=== PATIENT | female | born 1985 | race Caucasian/White ===

== ENCOUNTER 2017-04-27 06:46 | Emergency (ER) | payer OTHER ==
[~2017-04-27] VITALS: Ht 152.4 cm; Wt 93.6 kg
[~2017-04-27 06:46] MED LIST: ACET-749 PO; MTR600X PO; PEDICHW34 PO
[2017-04-27 06:50] VITALS: TEMP 36.5; Ht 152.4 cm; Wt 93.6 kg
[2017-04-27] MEDS ORDERED: NORE1TAB89 PO (06:56)
[2017-04-27] MEDS ORDERED: ONDANSETRON 4MG OD TAB SL ONE (07:00)
[2017-04-27 07:34] LABS: HEMATOCRIT 39.7 % (37-47); MEAN CELL VOLUME 82.2 fL (80-100); MEAN CORPUSCULAR HEMOGLOBIN 27.5 pg (25-34); MEAN CORPUSCULAR HGB CONC 33.5 g/dl (32-36); MEAN PLATELET VOLUME 10.3 fL (7.4-10.4); PLATELET COUNT 459 K/uL (130-400); RED BLOOD COUNT 4.83 M/uL (4.2-5.4); WHITE BLOOD COUNT 12.22 K/uL (4.8-10.8)
[2017-04-27 07:38] LABS: URINE APPEARANCE CLEAR (CLEAR); URINE BILIRUBIN NEG (NEG); URINE COLOR YELLOW; URINE EPITHELIAL CELL AUTO >30 /lpf (0-5); URINE NITRITE NEG (NEG); URINE PH >= 9.0 (4.5-7.5); URINE SPECIFIC GRAVITY 1.024 (1.000-1.030); UROBILINOGEN NEG (NEG); ZZUR CULT IF INDIC CLEAN CATCH NO
[2017-04-27 07:42] LABS: MANUAL MICROSCOPIC REQUIRED? NO; REVIEW REQ? NO
[2017-04-27 07:45] LABS: SULFASALICYLIC ACID NEG (NEG)
[2017-04-27 07:55] LABS: CALCIUM 8.9 mg/dl (8.5-10.1); CREATININE 0.84 mg/dl (0.60-1.20); POTASSIUM 4.2 mmol/L (3.5-5.1)
--- NOTE | 2017-04-27 08:24 | EMERGENCY ROOM VISIT NOTE ---
History Report prepared by Flower: Shannon Lucero Under the Supervision of: Dr. Allan Case M.D. First contact with patient: 06:55 Chief Complaint: ABDOMINAL PAIN Stated Complaint: LOWER ABD PAIN, DIARRHEA FOR 3 DAYS Nursing Triage Summary: Pt c/o diarrhea and lower abd pain x3 days this morning emesis x1 History of Present Illness The patient is a 32 year old female who presents to the Emergency Room with complaints of persistent abdominal pain that started three days ago. She states that she has nausea and several episodes of diarrhea over the past 3 days. The patient also notes that she started having incidents of vomiting this morning. She has not been able to drink any fluids without having an episode of diarrhea. The patient denies having any fevers or leg pain. The patient states that she has not had any changes in her diet and has not been out of the country recently. She also notes that she has not taken any antibiotic recently. She denies any sick contact. Source of History: patient Onset: 3 days ago Position: abdomen Quality: other (persistent) Associated Symptoms: + nausea, + vomiting, + diarrhea, No fevers Note: Pt denies leg pain. Review of Systems All systems have been listed, reviewed, and are negative other than those previously mentioned. Please see Additional Medical History Sheet. Past Medical & Surgical Medical Problems: (1) Pharyngitis Family History No pertinent family history stated Social History Smoking Status: Current Every Day Smoker Drug Use: none Marital Status: Occupation Status: employed Current/Historical Medications Scheduled Norethindrone & Eth Estradiol (Pirmella ), 1 TAB PO DAILY Ondasetron Odt (Zofran Odt), 4 MG SL Q6H Allergies Coded Allergies: No Known Allergies (Verified , 11/14/14) Physical Exam Vital Signs Date Time Temp Pulse Resp B/P (MAP) Pulse Ox O2 Delivery O2 Flow Rate FiO2 04/27/17 10:30 79 16 128/95 99 04/27/17 08:28 81 16 97/72 96 Room Air 04/27/17 06:50 36.5 61 20 123/81 97 Room Air Physical Exam GENERAL: Patient awake, alert, oriented x 3. Patient follows commands. Patient does not appear toxic. Patient is adequately hydrated. Patient is in minimal distress. SKIN: No erythema, pallor, cyanosis or rash HEENT: Normal head, pupils equal, reactive to light and accommodation. Oral cavity and posterior pharynx appear normal. Mucus membrane is moist. Neck: Without adenopathy, no neck vein distention. LUNGS: Clear to auscultation. No wheezes, no rales, no rhonchi. HEART: No murmurs. No gallops. No rubs ABDOMEN: Soft nontender. Obese EXTREMITIES: No signs of trauma or infection. NEUROLOGIC: Cranial nerves II-XII within normal limits. No gross motor sensory function deficits. Medical Decision & Procedures Laboratory Results 04/27/17 07:10 04/27/17 07:10 Test 04/27/17 07:10 Red Blood Count 4.83 M/uL (4.2-5.4) Mean Corpuscular Volume 82.2 fL (80-100) Mean Corpuscular Hemoglobin 27.5 pg (25-34) Mean Corpuscular Hemoglobin Concent 33.5 g/dl (32-36) RDW Standard Deviation 42.0 fL (36.4-46.3) RDW Coefficient of Variation 13.9 % (11.5-14.5) Mean Platelet Volume 10.3 fL (7.4-10.4) Urine Color YELLOW Urine Appearance CLEAR (CLEAR) Urine pH >= 9.0 (4.5-7.5) Urine Specific [place]oshone 1.024 (1.000-1.030) Urine Protein NEG (NEG) Urine Glucose (UA) NEG (NEG) Urine Ketones NEG (NEG) Urine Occult Blood NEG (NEG) Urine Nitrite NEG (NEG) Urine Bilirubin NEG (NEG) Urine Urobilinogen NEG (NEG) Urine Leukocyte Esterase TRACE (NEG) Urine WBC (Auto) 1-5 /hpf (0-5) Urine RBC (Auto) 5-10 /hpf (0-4) Urine Hyaline Casts (Auto) 1-5 /lpf (0-5) Urine Epithelial Cells (Auto) >30 /lpf (0-5) Urine Bacteria (Auto) NEG (NEG) Urine Test NEG (NEG) Anion Gap 6.0 mmol/L (3-11) Est Creatinine Clear Calc Drug Dose 100.1 ml/min Estimated GFR () 108.1 Estimated GFR (Non- 93.3 BUN/Creatinine Ratio 18.0 (10-20) Calcium Level 8.9 mg/dl (8.5-10.1) Chemistry Specimen Hemolysis Date/Time Source Procedure Growth Status 04/27/17 00:00 Stool C.difficile Toxin B Gene (PCR) - Final No C. difficile toxin B gene detected Complete Laboratory results as stated above per my review. Medications Administered Medications (Trade) Dose Ordered Sig/Annette Route Start Time Stop Time Status Last Admin Dose Admin Ondansetron HCl (Zofran Odt) 4 mg ONE ONCE SL 04/27/17 07:00 04/27/17 07:01 DC 04/27/17 07:15 4 MG ED Course 0657: Past medical records reviewed. The patient was evaluated in room A11. A complete history and physical examination was performed. 0700: Zofran Odt 4mg SL. 1008: I reevaluated and updated the patient and she is feeling better. 1025: Upon reevaluation, the patient appeared to have improvement of her symptoms. I discussed today's findings with the patient. She verbalized agreement of the treatment plan. The patient was discharged home. Medical Decision Differential diagnosis includes but is not limited to acute gastroenteritis, dehydration, infection, metabolic disorder, viral vs. bacterial Multiple labs and urinalysis were obtained. C. difficile is negative. Stool cultures pending. White count was minimally elevated. The patient felt significantly better after fluid administration. The patient was felt safe to return home. She will be given a prescription for Zofran. She was encouraged to drink extra fluids. Most likely this is of viral etiology. Medication Reconciliation: I attest that I have personally reviewed the patient' s current medication list. Blood pressure Screening: Patient was found to have normal blood pressure on screening and does not require follow up. Impression Primary Impression: Acute gastroenteritis Scribe Attestation The scribe's documentation has been prepared under my direction and personally reviewed by me in its entirety. I confirm that the note above accurately reflects all work, treatment, procedures, and medical decision making performed by me. Departure Information Dispostion Home / Self-Care Prescriptions Ondasetron Odt (ZOFRAN ODT) 4 Mg Tab 4 MG SL Q6H for Nausea, #10 TAB Prov: Allan Case M.D. 04/27/17 Referrals Quincy Mejia III, M.D. (PCP) Forms HOME CARE DOCUMENTATION FORM, IMPORTANT VISIT INFORMATION Patient Instructions ED Diet Vomiting Diarrhea, My [facility] Additional Instructions 1 Zofran every 4 hours as needed for nausea. Drink at least 4 quarts of liquid over the next 24 hours. Return here if you are unable to hold down liquids.
[2017-04-27] MEDS ORDERED: ONDA4TAB10 SL (10:16)
[2017-04-27 10:30] VITALS: BP 128/95; PULSE 79; O2SAT 99
== END 2017-04-27 10:25 | disposition home or self-care (01) ==
LOC: C.EDB 06:48 → C.EDA 10:25
DX: K52.9 Noninfective gastroenteritis and colitis, unspecified (principal); R10.9 Unspecified abdominal pain; F17.210 Nicotine dependence, cigarettes, uncomplicated

== ENCOUNTER 2023-12-08 15:47 | Inpatient (IN) ==
[2023-12-08 16:33] LABS: Basophils # (auto) 0.03 K/uL (0.00-0.20); Basophils % (auto) 0.2 %; Eosinophils # (auto) 0.06 K/uL (0.00-0.50); Eosinophils % (auto) 0.4 %; Hematocrit (blood only) 37.7 % (37.0-47.0); Hemoglobin 12.5 g/dl (12.0-16.0); Immature Granulocytes # (auto) 0.04 K/uL (0.01-0.20); Immature Granulocytes % (auto) 0.3 %; Lymphocytes % (auto) 16.6 %; Mean Corpuscular Hemoglobin 26.4 pg (25.0-34.0); Mean Corpuscular Hgb Conc 33.2 g/dL (32.0-36.0); Mean Corpuscular Volume 79.5 fL (80.0-100.0); Mean Platelet Volume 9.9 fL (9.4-12.4); Monocytes # (auto) 0.77 K/uL (0.11-0.59); Monocytes % (auto) 5.3 %; Neutrophils # (auto) 11.15 K/uL (1.40-6.50); Neutrophils % (auto) 77.2 %; Platelet Count 446 K/uL (130-400); RDW Coefficient of Variation 13.8 % (11.5-14.5); RDW Standard Deviation 39.8 fL (36.4-46.3); Red Blood Count 4.74 M/uL (4.20-5.40); White Blood Count 14.45 K/ul (4.8-10.8)
[2023-12-08 16:48] LABS: Pregnancy Test, Serum Negative (Negative)
[2023-12-08 16:49] LABS: Albumin Level 3.9 gm/dl (3.4-5.0); Bilirubin,Total 0.6 mg/dl (0.2-1.0); Calcium 8.9 mg/dl (8.6-10.3); Potassium 3.9 mmol/L (3.5-5.1)
[2023-12-08 16:55] LABS: BUN Creatinine Ratio 16.3 (10-20); Creatinine Clr Calc Pharmacy 106.8 ml/min; Est GFR (African American) 109.9 ml/min; Est GFR (Non-African American) 94.9 ml/min; Globulin 3.8 gm/dl (2.5-4.0); Total Protein 7.7 gm/dl (6.0-8.3)
[2023-12-08 17:47] LABS: Appearance Urine Turbid (Clear); Bacteria Urine Automated Negative (Negative); Blood Urine Trace (Negative); Cast Urine Automated 0 /lpf (0-5); Color Urine Orange; Epithelial Cell Urine Auto >30 /lpf (0-5); Glucose Urine UA Negative (Negative); Ketones Urine Trace (Negative); Leukocyte Esterase Urine Trace (Negative); Nitrite Urine Negative (Negative); Protein Urine Trace (Negative); RBC Urine Automated 0-4 /hpf (0-4); Specific Gravity Urine 1.031 (1.000-1.030); Urobilinogen Urine Negative (Negative)
[2023-12-08 17:48] LABS: Bilirubin Urine 1+ (Negative)
--- NOTE | 2023-12-08 18:12 | Emergency Department Note ---
History of Present Illness General Chief complaint: Abdominal Pain Stated complaint: DIVERTICULITIS FLAIR, BACK/ABDOMINAL PAIN Time Seen by Provider: 12/08/23 17:50 History of Present Illness Maximum Pain Intensity: 9 This is a 38-year-old female that presents to the emergency department via private vehicle with complaints "diverticulitis flare, back and abdominal pain". The patient notes that over the past few weeks now she has been experiencing diverticulitis. She notes initially she was on Cipro/Flagyl and completed that course. She then returned here about 4 days ago noting return of symptoms and was started on Augmentin. She notes that despite the oral antibiotics as prescribed she now notes worsening symptoms. She notes today vomiting and inability to tolerate the oral antibiotics. She also notes worsening abdominal pain and now low back pain which is new. Current pain 05/28. Home Medications Medication Instructions Recorded Confirmed Type omeprazole 20 mg capsule,delayed 20 mg PO QAM 05/02/21 12/08/23 History release amoxicillin 875 mg-potassium 1 tab PO BID #20 tabs 12/04/23 12/08/23 Rx clavulanate 125 mg tablet Allergies Allergy/AdvReac Type Severity Reaction Status Date / Time No Known Allergies Allergy Verified 12/08/23 18:50 Past Med/Surg History Medical History Breast abscess pt is s/p PO Abx; plan for surgical I&D Breast hypertrophy Morbid obesity with BMI of 40.0-44.9, adult GERD (gastroesophageal reflux disease) History of diverticulitis Iron deficiency anemia hx of iron infusions; H/H WNL 01/16/23 labs History of COVID-19 x2: 04/2022 and 05/2021: fever/fatigue/loss of taste and smell; all sx resolved Depression Surgical History History of breast surgery Breast abscess Family History Grandmother (Paternal) Diabetes Grandfather (Maternal) Hypertension Other No family history of adverse response to anesthesia Denies family history of Ovarian cancer Breast cancer Colorectal cancer Uterine cancer Social History Smoking Status: Former smoker Tobacco Type: Cigarettes Cigarettes Per Day: 5-6; Smoking End Date: quit 10/08/2018; Second Hand Exposure: No; Do You Dip or Chew Tobacco: No; Tobacco Cessation Education Requested by Patient: No Hx Alcohol Use: No Hx Substance Use: No Preferred Language: Dominican Communication Ability: Effective 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 Other Information That Helps Us Care for You: No Feels Safe at Home: Yes Safety Concerns: Feels Safe At This Time Assistive Devices: Glasses and Hospital Bed Review of Systems A total of 10 systems reviewed and were otherwise negative Physical Exam Vital Signs Vital Signs - 24 hr 12/08/23 18:11 12/08/23 19:00 Pulse Rate [Right Finger] 78 Pulse Rhythm [Right Finger] Regular Respiratory Rate 20 Respiratory Effort / Characteristics Non-Labored Respiratory Depth Normal Blood Pressure [Right Arm] 111/57 L Blood Pressure Mean [Right Arm] 75 Pulse Oximetry 96 96 Oxygen Delivery Method Room Air Room Air VITAL SIGNS - Vital signs and nursing notes were reviewed. Stable and afebrile. GENERAL -38-year-old female appearing her stated age who is in no acute distress. Communicates well with provider and answers questions appropriately. SKIN - Without rashes. No meningeal or petechial rash. HEAD - NC/AT. EYES - Sclera anicteric. MOUTH/OROPHARYNX - Without perioral cyanosis. LUNGS - Chest wall symmetric without accessory muscle use, intercostals retractions, or central cyanosis. Normal vesicular breath sounds CTA B/L. No wheezes, rales, or rhonchi appreciated. CARDIAC - RRR with S1/S2. No murmur, rubs, or gallops appreciated. ABDOMEN - Abdominal contour normal without pulsations or visible masses. BS normoactive all four quadrants. There is lower abdominal tenderness to palpation. No guarding or rigidity. No palpable masses, hepatosplenomegaly, or ascites noted. EXTREMITIES - No clubbing or peripheral cyanosis. +5/5 strength noted in UE/LE bilaterally. NEUROLOGIC - Cranial nerves II through XII grossly intact. PSYCH -alert, oriented and pleasant on exam. Course Administered Medications Acetaminophen (Acetaminophen 500 Mg Tab) 1,000 mg PO Q8H [facility] Stop: 01/07/24 21:00 Last Admin: 12/09/23 12:16 Dose: 1,000 mg Documented By: Admin: 12/09/23 04:42 Dose: 1,000 mg Documented By: Admin: 12/08/23 21:36 Dose: 1,000 mg Documented By: MELANIA Sodium Chloride (Nss) 1,000 mls @ 125 mls/hr IV .Q8H DAYO Stop: 12/09/23 21:00 Last Admin: 12/09/23 12:19 Dose: 125 mls/hr Documented By: Infusion: 12/09/23 12:19 Dose: Infused Documented By: Admin: 12/09/23 04:41 Dose: 125 mls/hr Documented By: Infusion: 12/09/23 04:41 Dose: Infused Documented By: Admin: 12/08/23 21:35 Dose: 125 mls/hr Documented By: MELANIA Piperacillin Sod/Tazobactam (Sod 4.5 gm/ Dextrose) 100 mls @ 25 mls/hr IV Q8H [facility]; Protocol Stop: 12/19/23 00:59 Last Admin: 12/09/23 16:47 Dose: 25 mls/hr Documented By: Infusion: 12/09/23 12:15 Dose: Infused Documented By: Admin: 12/09/23 08:13 Dose: 25 mls/hr Documented By: Infusion: 12/09/23 04:41 Dose: Infused Documented By: Admin: 12/09/23 00:40 Dose: 25 mls/hr Documented By: MELANIA Ondansetron HCl (Ondansetron Inj 2 Mg/Ml 2 Ml Vial) 4 mg IV Q6H PRN PRN Reason: Nausea Stop: 01/07/24 21:00 Last Admin: 12/09/23 12:16 Dose: 4 mg Documented By: KENYON Pantoprazole Sodium (Pantoprazole 40 Mg Tab) 40 mg PO QAM [facility]; Protocol Stop: 01/08/24 08:59 Last Admin: 12/09/23 08:12 Dose: 40 mg Documented By: TOPHER Discontinued Medications Hydromorphone HCl (Hydromorphone Inj 0.5 Mg/0.5 Ml Syr) 0.25 mg IV NOW STA Stop: 12/08/23 18:11 Last Admin: 12/08/23 18:20 Dose: 0.25 mg Documented By: VINICIUS Piperacillin Sod/Tazobactam Sod (Zosyn) 4.5 gm in 100 mls @ 200 mls/hr IV NOW ONE Stop: 12/08/23 18:39 Last Infusion: 12/08/23 19:15 Dose: Infused Documented By: Admin: 12/08/23 18:21 Dose: 200 mls/hr Documented By: VINICIUS Sodium Chloride (Nss) 1,000 mls @ 999 mls/hr IV .Q1H1M DAYO Stop: 12/08/23 20:15 Last Infusion: 12/08/23 21:30 Dose: Infused Documented By: Admin: 12/08/23 20:28 Dose: 999 mls/hr Documented By: EMANUEL Ioversol (Optiray 320 100ml) 93 ml IV ONCE ONE Stop: 12/08/23 18:30 Last Admin: 12/08/23 18:30 Dose: 93 ml Documented By: DAVID Ondansetron HCl (Ondansetron Inj 2 Mg/Ml 2 Ml Vial) 4 mg IV NOW STA Stop: 12/08/23 18:11 Last Admin: 12/08/23 18:20 Dose: 4 mg Documented By: VINICIUS Potassium Chloride (Potassium Chloride Crtab 20 Meq Tabcr) 40 meq PO ONE ONE Stop: 12/09/23 07:42 Last Admin: 12/09/23 08:12 Dose: 40 meq Documented By: TOPHER Medical Decision Making Laboratory Data 12/09/23 05:30 12/09/23 05:30 Lab Results 12/08/23 Range/Units 15:56 WBC 14.45 H (4.8-10.8) K/ul RBC 4.74 (4.20-5.40) M/uL Hgb 12.5 (12.0-16.0) g/dl Hct 37.7 (37.0-47.0) % MCV 79.5 L (80.0-100.0) fL MCH 26.4 (25.0-34.0) pg MCHC 33.2 (32.0-36.0) g/dL RDW Std Deviation 39.8 (36.4-46.3) fL RDW Coeff of Leah 13.8 (11.5-14.5) % Plt Count 446 H (130-400) K/uL MPV 9.9 (9.4-12.4) fL Immature Gran % (Auto) 0.3 % Neut % (Auto) 77.2 % Lymph % (Auto) 16.6 % Rice % (Auto) 5.3 % Eos % (Auto) 0.4 % Baso % (Auto) 0.2 % Neut # (Auto) 11.15 H (1.40-6.50) K/uL Lymph # (Auto) 2.40 (1.20-3.40) K/uL Rice # (Auto) 0.77 H (0.11-0.59) K/uL Eos # (Auto) 0.06 (0.00-0.50) K/uL Baso # (Auto) 0.03 (0.00-0.20) K/uL Immature Gran # (Auto) 0.04 (0.01-0.20) K/uL Sodium 137 (136-145) mmol/L Potassium 3.9 (3.5-5.1) mmol/L Chloride 104 (98-107) mmol/L Carbon Dioxide 25 (21-32) mmol/L Anion Gap 8 (3-11) BUN 13 (6-23) mg/dl Creatinine 0.80 (0.6-1.2) mg/dl Est Cr Clr Drug Dosing 106.8 ml/min Est GFR ( Amer) 109.9 ml/min Est GFR (Non-Af Amer) 94.9 ml/min BUN/Creatinine Ratio 16.3 (10-20) Glucose 90 (70-99(Fasting)) mg/dl Calcium 8.9 (8.6-10.3) mg/dl Total Bilirubin 0.6 (0.2-1.0) mg/dl AST 13 (13-39) U/L ALT 11 (7-52) U/L Alkaline Phosphatase 87 (34-104) U/L Total Protein 7.7 (6.0-8.3) gm/dl Albumin 3.9 (3.4-5.0) gm/dl Globulin 3.8 (2.5-4.0) gm/dl Albumin/Globulin Ratio 1.0 (0.9-2) Lipase 7 L (11-82) U/L HCG, Qual Negative (Negative) Imaging Data Radiologist's Impression: Abdomen/Pelvis CT 12/08/23 18:10 CT SCAN OF THE ABDOMEN AND PELVIS WITH IV CONTRAST CLINICAL HISTORY: Generalized abdominal pain. Vomiting. Diverticulitis. COMPARISON STUDY: Abdominal CT dated 12/04/2023. TECHNIQUE: Following the IV administration of 118 cc of Optiray 320, CT scan of the abdomen and pelvis is performed from the lung bases to the proximal femora. Images are reviewed in the axial, sagittal, and coronal planes. IV contrast was administered without complication. A dose lowering technique was utilized adhering to the principles of ALARA. CT DOSE: 1479.25 mGy.cm FINDINGS: Lung bases: The heart is normal in size and without pericardial effusion. The lung bases are clear. There is a small hiatal hernia. Liver: The contrast-enhanced liver is normal in size, contour, and attenuation. There is no intrahepatic biliary ductal dilatation. The hepatic veins and portal veins are patent. Gallbladder: Unremarkable. Spleen: Normal in size and attenuation. Pancreas: Unremarkable. Adrenal glands: Unremarkable. Kidneys: The contrast enhanced kidneys are normal in size and without hydronephrosis. The kidneys enhance symmetrically. Abdominal vasculature: The abdominal aorta is normal in course and caliber. Bowel: There is mild colonic diverticulosis. There is significant wall thickening of the proximal sigmoid colon with surrounding inflammation and trace fluid consistent with acute diverticulitis. There is a 2.2 x 1.9 x 2.7 cm intramural abscess seen on axial image #278. No bowel obstruction is seen. The appendix is well-visualized and normal. Peritoneum: There is no intraperitoneal free air or abdominal ascites. There is a large fat-containing umbilical hernia. Lymphadenopathy: Prominent retroperitoneal lymph nodes are likely reactive. Pelvic viscera: The bladder, uterus, and adnexa are normal as visualized. Skeletal structures: No lytic or blastic lesions are seen. Sclerotic change is noted in the sacroiliac joints. IMPRESSION: 1. Again seen are findings of acute sigmoid diverticulitis. The degree of inflammation has modestly worsened as compared to 12/04/2023. 2. No intraperitoneal free air is identified. 3. There is a 2.7 cm intramural abscess along the superior aspect of the sigmoid colon. This is not amenable to percutaneous drainage. 4. Large fat-containing umbilical hernia. 5. Additional findings as above. ACT 112: Negative or not required by law. Electronically signed by: Diallo Khan M.D. 12/08/2023 7:01 PM MDM Narrative Patient was seen and evaluated as above in room A10. Review was performed of triage nursing notes and vital signs. I did review pertinent previous visits and patient history. After obtaining a thorough history and physical examination the above work up was performed. Patient presents to us today for evaluation of ongoing abdominal pain now with worsening symptoms in the setting of recent diverticulitis diagnosis. She is currently on oral antibiotics. She now has low back pain and cannot keep her oral antibiotic down as she is now vomiting today. Options of care were discussed with the patient. IV access was established. Labs were drawn. There is leukocytosis 14.45. No anemia. No evidence of kidney or liver failure. hCG negative. Urinalysis reveals what is likely a contaminated sample noting the greater than 30 epithelial cells. No bacteria. Benefit versus risk of CT imaging discussed and at this time we will proceed with CT imaging of the abdomen/pelvis to compare to previous studies noting the patient's worsening symptoms in the setting of diverticulitis diagnosis. There is acute sigmoid diverticulitis noted but also now a 2.7 cm intramural abscess. This is not amenable to percutaneous drainage per radiology. At this time I do believe that IV antibiotics and inpatient management is warranted. While here the patient was medicated with IV analgesia, IV antiemetics, IV fluids as well as IV antibiotics. Patient amenable to plan of care. Case discussed with the hospitalist service. Please refer to further documentation regarding her stay. Case was discussed with the attending physician. GCS: 15 In the evaluation and treatment of this patient the following differential diagnoses were entertained: Diverticular abscess, intestinal perforation, diverticulitis, bowel obstruction, UTI, pyelonephritis, among others Attending Attestation: I Gurpreet Miranda MD I have reviewed the advanced practitioner's documentation and agree with the plan of care. Admit for IV antibiotics as failed outpatient treatment and now with abscess formation. I accept the responsibility for the associated risk of managing the patient. Impression & Plan Abscess of sigmoid colon due to diverticulitis, Abdominal pain, Vomiting Discharge Plan Visit Data Chief Complaint: Abdominal Pain Stated Complaint: DIVERTICULITIS FLAIR, BACK/ABDOMINAL PAIN ED Provider: Gurpreet Miranda ED Midlevel Provider: Venkat Barron Discharge Problem: Abscess of sigmoid colon due to diverticulitis, Abdominal pain, Vomiting Patient Disposition: Admitted As Inpatient Condition: Good Discharge Instructions Interventions: ED Discharge Assessment Last Done: 12/08/23 20:46
[2023-12-08] MEDS: HYDROmorphone INJ 0.5 MG/0.5 ML SYR IV STA (18:20)
[2023-12-08] MEDS: ONDANSETRON INJ 2 MG/ML 2 ML VIAL IV STA (18:20)
[2023-12-08] MEDS: PIPERACILLIN/TAZOBACTAM 4.5 GM/100 ML BAG IV ONE (18:21)
[2023-12-08] MEDS: OPTIRAY 320 100ml IV ONE (18:30)
--- NOTE | 2023-12-08 19:03 | CT Scan Report ---
CT SCAN OF THE ABDOMEN AND PELVIS WITH IV CONTRAST CLINICAL HISTORY: Generalized abdominal pain. Vomiting. Diverticulitis. COMPARISON STUDY: Abdominal CT dated 12/04/2023. TECHNIQUE: Following the IV administration of 118 cc of Optiray 320, CT scan of the abdomen and pelv is is performed from the lung bases to the proximal femora. Images are reviewed in the axial, sagitta l, and coronal planes. IV contrast was administered without complication. A dose lowering technique w as utilized adhering to the principles of ALARA. CT DOSE: 1479.25 mGy.cm FINDINGS: Lung bases: The heart is normal in size and without pericardial effusion. The lung bases are clear. T here is a small hiatal hernia. Liver: The contrast-enhanced liver is normal in size, contour, and attenuation. There is no intrahepa tic biliary ductal dilatation. The hepatic veins and portal veins are patent. Gallbladder: Unremarkable. Spleen: Normal in size and attenuation. Pancreas: Unremarkable. Adrenal glands: Unremarkable. Kidneys: The contrast enhanced kidneys are normal in size and without hydronephrosis. The kidneys enh ance symmetrically. Abdominal vasculature: The abdominal aorta is normal in course and caliber. Bowel: There is mild colonic diverticulosis. There is significant wall thickening of the proximal sig moid colon with surrounding inflammation and trace fluid consistent with acute diverticulitis. There is a 2.2 x 1.9 x 2.7 cm intramural abscess seen on axial image #278. No bowel obstruction is seen. Th e appendix is well-visualized and normal. Peritoneum: There is no intraperitoneal free air or abdominal ascites. There is a large fat-containin g umbilical hernia. Lymphadenopathy: Prominent retroperitoneal lymph nodes are likely reactive. Pelvic viscera: The bladder, uterus, and adnexa are normal as visualized. Skeletal structures: No lytic or blastic lesions are seen. Sclerotic change is noted in the sacroilia c joints. IMPRESSION: 1. Again seen are findings of acute sigmoid diverticulitis. The degree of inflammation has modestly w orsened as compared to 12/04/2023. 2. No intraperitoneal free air is identified. 3. There is a 2.7 cm intramural abscess along the superior aspect of the sigmoid colon. This is not a menable to percutaneous drainage. 4. Large fat-containing umbilical hernia. 5. Additional findings as above. ACT 112: Negative or not required by law. Electronically signed by: Diallo Khan M.D. 12/08/2023 7:01 PM
--- NOTE | 2023-12-08 20:25 | History & Physical Report ---
Date of Service December 08, 2023 Assessment & Plan (1) Abscess of sigmoid colon due to diverticulitis: Plan: Unsuccessful treatment with oral abx over the last 3-4 weeks. Cont Zosyn. Pain control and antiemetics as needed. Clear liquids and advance diet as tolerated. Not amenable to percutaneous drainage per guidelines, but will ask gen surg to evaluate her and leave recs. (2) Morbid obesity with BMI of 40.0-44.9, adult: Plan: BMI is 45. She reports avoiding red meats, alcohol and smoking which has been known to be linked to diverticulitis flares. We discussed the importance of gut healthy foods. Weight loss is very important for her overall health, especially at her age. Will screen her for DMII on am labs. Cont diet modifications and lifestyle changes to continue with weight loss efforts for overall improvement in health. (3) GERD (gastroesophageal reflux disease): Plan: chronic, controlled. Cont PPI per home regimen. DVT prophy: SCDs, ambulation. Full Code Dispo- hospitalized for 2 nights for continued IV abx, then DC home likely after the weekend. I spent a total [id number] coordinating, documenting, and providing care for this patient excluding time spent in the performance of separately billed services Zully Saleh DO [facility] Hospitalist History of Present Illness Chief Complaint: abdominal pain Primary Care Provider: Quincy Mejia MD 38-year-old female presents with acute complicated diverticulitis with small abscess formation. She was notably on a round of Augmentin for sinus infection during mid October she was then seen less than a week later in the ER for abdominal pain that was acute. She was still on the Augmentin at that time. CT showed acute diverticulitis without evidence of perforation or abscess and she was sent home with a course of Cipro Flagyl. This was on 11/13 and she returned on 12/03 with reports of intermittent abdominal pain. Imaging was repeated and revealed persistence of acute diverticulitis without evidence of perforation or abscess. She was placed on Augmentin at that time and now is returning 4 days later reporting abdominal pain with radiation into her back. Repeat CT scan reveals new abscess complication. She is feeling better since receiving dilaudid in the ER. She denies nausea. She reports overall a history of about 5 episodes of diverticulitis in her life and has not yet had a colonoscopy. No family history of diverticulitis that she is aware of. She is morbidly obese and reports drinking Dr. Waters consistently although she recently switched to water. She also reports no smoking, alcohol use and she has avoided any red meats, also. Allergies Allergy/AdvReac Type Severity Reaction Status Date / Time No Known Allergies Allergy Verified 12/08/23 18:50 Home Medications Medication Instructions Recorded Confirmed Type omeprazole 20 mg capsule,delayed 20 mg PO QAM 05/02/21 12/08/23 History release amoxicillin 875 mg-potassium 1 tab PO BID #20 tabs 12/04/23 12/08/23 Rx clavulanate 125 mg tablet Past Med/Surg History Medical History Breast abscess pt is s/p PO Abx; plan for surgical I&D Breast hypertrophy Morbid obesity with BMI of 40.0-44.9, adult GERD (gastroesophageal reflux disease) History of diverticulitis Iron deficiency anemia hx of iron infusions; H/H WNL 01/16/23 labs History of COVID-19 x2: 04/2022 and 05/2021: fever/fatigue/loss of taste and smell; all sx resolved Depression Surgical History History of breast surgery Breast abscess Family History Grandmother (Paternal) Diabetes Grandfather (Maternal) Hypertension Other No family history of adverse response to anesthesia Denies family history of Ovarian cancer Breast cancer Colorectal cancer Uterine cancer Social History Smoking Status: Former smoker Tobacco Type: Cigarettes Smoking End Date: quit 10/08/2018; Second Hand Exposure: No; Do You Dip or Chew Tobacco: No; Hx Alcohol Use: No Hx Substance Use: No Preferred Language: Belarusian Communication Ability: Effective 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 Required: No Beliefs That Will Affect Care: None marital status: marital status details: Moe Swartz (40) [phone] Current Living Situation: Spouse and Family Current Living Situation Comment: Lives with and 4 kids 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 Feels Safe at Home: Yes Assistive Devices: Glasses Physical Exam Physical Exam: CONSTITUTIONAL: obese, vitals as above, generally well-appearing, NAD EYES: normal conjunctivae, no scleral icterus ENT: external ear and nose normal, MMM NECK: trachea midline RESPIRATORY: clear to auscultation bilaterally, no crackles, rales or wheezes, normal respiratory effort CARDIOVASCULAR: regular rate and rhythm, S1 and 2 heard without murmurs, gallops or rubs, no JVD, no peripheral edema, no carotid bruits CHEST: inspection of chest was normal GASTROINTESTINAL: soft, nTTP in RLQ>LLQ, ND, no guarding MUSCULOSKELETAL: strength 5/5 throughout, head is normocephalic and atraumatic SKIN: warm and dry NEUROLOGIC: CN 2-12 grossly intact, no sensory deficit, normal cognition, normal speech, no tremor PSYCHIATRIC: alert cooperative and oriented to person, place and time. Euthymic mood, makes good eye contact, language grossly intact, recent and remote memory grossly intact. Results & Data Results & Data Vital Signs (Past 12 Hours) Vital Signs Temp Pulse Pulse Resp BP BP Pulse Ox 12/08/23 18:11 96 12/08/23 17:28 64 20 153/77 H 100 12/08/23 15:53 36.0 C L 97 H 20 117/76 98 O2 Del Method 12/08/23 18:11 Room Air 12/08/23 17:28 Room Air 12/08/23 15:53 Room Air Laboratory Results Short CBC 12/08/23 Range/Units 15:56 WBC 14.45 H (4.8-10.8) K/ul Hgb 12.5 (12.0-16.0) g/dl Hct 37.7 (37.0-47.0) % Plt Count 446 H (130-400) K/uL BMP 12/08/23 15:56 Sodium 137 Potassium 3.9 Chloride 104 Carbon Dioxide 25 BUN 13 Creatinine 0.80 Glucose 90 Calcium 8.9 Liver Function 12/08/23 Range/Units 15:56 Total Bilirubin 0.6 (0.2-1.0) mg/dl AST 13 (13-39) U/L ALT 11 (7-52) U/L Alkaline Phosphatase 87 (34-104) U/L Albumin 3.9 (3.4-5.0) gm/dl Urine 12/08/23 Range/Units Unknown Urine Color Hardy Urine Appearance Turbid A (Clear) Urine pH 5.0 (4.5-7.5) Ur Specific [place] 1.031 H (1.000-1.030) Urine Protein Trace H (Negative) Urine Glucose (UA) Negative (Negative) Diagnostic Findings Abdomen/Pelvis CT 12/08/23 18:10 CT SCAN OF THE ABDOMEN AND PELVIS WITH IV CONTRAST CLINICAL HISTORY: Generalized abdominal pain. Vomiting. Diverticulitis. COMPARISON STUDY: Abdominal CT dated 12/04/2023. TECHNIQUE: Following the IV administration of 118 cc of Optiray 320, CT scan of the abdomen and pelvis is performed from the lung bases to the proximal femora. Images are reviewed in the axial, sagittal, and coronal planes. IV contrast was administered without complication. A dose lowering technique was utilized adhering to the principles of ALARA. CT DOSE: 1479.25 mGy.cm FINDINGS: Lung bases: The heart is normal in size and without pericardial effusion. The lung bases are clear. There is a small hiatal hernia. Liver: The contrast-enhanced liver is normal in size, contour, and attenuation. There is no intrahepatic biliary ductal dilatation. The hepatic veins and portal veins are patent. Gallbladder: Unremarkable. Spleen: Normal in size and attenuation. Pancreas: Unremarkable. Adrenal glands: Unremarkable. Kidneys: The contrast enhanced kidneys are normal in size and without hydronephrosis. The kidneys enhance symmetrically. Abdominal vasculature: The abdominal aorta is normal in course and caliber. Bowel: There is mild colonic diverticulosis. There is significant wall thickening of the proximal sigmoid colon with surrounding inflammation and trace fluid consistent with acute diverticulitis. There is a 2.2 x 1.9 x 2.7 cm intramural abscess seen on axial image #278. No bowel obstruction is seen. The appendix is well-visualized and normal. Peritoneum: There is no intraperitoneal free air or abdominal ascites. There is a large fat-containing umbilical hernia. Lymphadenopathy: Prominent retroperitoneal lymph nodes are likely reactive. Pelvic viscera: The bladder, uterus, and adnexa are normal as visualized. Skeletal structures: No lytic or blastic lesions are seen. Sclerotic change is noted in the sacroiliac joints. IMPRESSION: 1. Again seen are findings of acute sigmoid diverticulitis. The degree of inflammation has modestly worsened as compared to 12/04/2023. 2. No intraperitoneal free air is identified. 3. There is a 2.7 cm intramural abscess along the superior aspect of the sigmoid colon. This is not amenable to percutaneous drainage. 4. Large fat-containing umbilical hernia. 5. Additional findings as above. ACT 112: Negative or not required by law. Electronically signed by: Diallo Khan M.D. 12/08/2023 7:01 PM Code Status & VTE Plan VTE Prophylaxis Plan VTE Prophylaxis will be ordered: Yes
[2023-12-08] MEDS: SODIUM CHLORIDE 0.9% 1,000 ML IV SCH ×2 (20:28→21:35)
[2023-12-08] MEDS ORDERED: traMADol HCL 50 MG TABLET PO PRN (21:01)
[2023-12-08] MEDS: ACETAMINOPHEN 500 MG TAB PO SCH (21:36)
[2023-12-09] MEDS: PIPERACILLIN/TAZOBACTAM 4.5 GM in DEXTROSE 5% MINI-B 100 ML IV SCH (00:40)
[2023-12-09 06:23] LABS: Hematocrit (blood only) 32.7 % (37.0-47.0); Hemoglobin 10.3 g/dl (12.0-16.0); Mean Corpuscular Hemoglobin 25.7 pg (25.0-34.0); Mean Corpuscular Hgb Conc 31.5 g/dL (32.0-36.0); Mean Corpuscular Volume 81.5 fL (80.0-100.0); Platelet Count 388 K/uL (130-400); RDW Coefficient of Variation 13.8 % (11.5-14.5); RDW Standard Deviation 41.1 fL (36.4-46.3); Red Blood Count 4.01 M/uL (4.20-5.40); White Blood Count 11.27 K/ul (4.8-10.8)
[2023-12-09 06:38] LABS: BUN Creatinine Ratio 14.3 (10-20); Calcium 7.6 mg/dl (8.6-10.3); Creatinine Clr Calc Pharmacy 122.9 ml/min; Est GFR (African American) 129.2 ml/min; Est GFR (Non-African American) 111.5 ml/min; Potassium 3.2 mmol/L (3.5-5.1)
[2023-12-09] MEDS: PANTOprazole 40 MG TAB PO SCH (08:12)
[2023-12-09] MEDS: POTASSIUM CHLORIDE CRTAB 20 MEQ TABCR PO ONE (08:12)
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
[2023-12-09] MEDS: ONDANSETRON INJ 2 MG/ML 2 ML VIAL IV PRN (12:16)
--- NOTE | 2023-12-09 13:58 | Surgery Consultation ---
Date of Consultation December 09, 2023 Assessment & Plan (1) Abscess of sigmoid colon due to diverticulitis: (2) Diverticulitis: Plan 38-year-old woman presents with diverticulitis with small intramural abscess of the sigmoid colon. There is no free perforation. She is feeling much better. Recommend continued IV antibiotics. Recommend continue clear liquid diet. IV fluid hydration. No surgical intervention required at this time. Will continue to follow. History of Present Illness Reason for Consultation: Diverticulitis with intramural abscess Requesting Physician: [place] MD Attending Physician: [place] MD History of Present Illness 38-year-old woman with a history of diverticulitis presents with an episode of diverticulitis. She was seen in the emergency department 2 days ago, was diagnosed with uncomplicated diverticulitis, and was sent home on oral antibiotics. The pain worsened and she developed fevers and chills and Nyasia presents to the emergency department. CT scan demonstrates progression of the diverticulitis with small intramural abscess in the sigmoid colon. No free perforation. She denies nausea or vomiting. Today she states she is feeling much better. She is now on IV antibiotics. She denies fevers or chills currently. Allergies Allergy/AdvReac Type Severity Reaction Status Date / Time No Known Allergies Allergy Verified 12/08/23 18:50 Home Medications Medication Instructions Recorded Confirmed Type omeprazole 20 mg capsule,delayed 20 mg PO QAM 05/02/21 12/08/23 History release amoxicillin 875 mg-potassium 1 tab PO BID #20 tabs 12/04/23 12/08/23 Rx clavulanate 125 mg tablet Patient History Medical History Breast abscess pt is s/p PO Abx; plan for surgical I&D Breast hypertrophy Morbid obesity with BMI of 40.0-44.9, adult GERD (gastroesophageal reflux disease) History of diverticulitis Iron deficiency anemia hx of iron infusions; H/H WNL 01/16/23 labs History of COVID-19 x2: 04/2022 and 05/2021: fever/fatigue/loss of taste and smell; all sx resolved Depression Surgical History History of breast surgery Breast abscess Family History Grandmother (Paternal) Diabetes Grandfather (Maternal) Hypertension Other No family history of adverse response to anesthesia Denies family history of Ovarian cancer Breast cancer Colorectal cancer Uterine cancer Social History Smoking Status: Former smoker Tobacco Type: Cigarettes Cigarettes Per Day: 5-6; Smoking End Date: quit 10/08/2018; Second Hand Exposure: No; Do You Dip or Chew Tobacco: No; Tobacco Cessation Education Requested by Patient: No Hx Alcohol Use: No Hx Substance Use: No Preferred Language: Micronesian Communication Ability: Effective House Father Required: No Beliefs That Will Affect Care: None marital status: marital status details: Moe Swartz (40) [phone] Current Living Situation: Family Current Living Situation Comment: Lives with and 3 children. 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 Other Information That Helps Us Care for You: No Feels Safe at Home: Yes Safety Concerns: Feels Safe At This Time Assistive Devices: Glasses and Hospital Bed Review of Systems Review of Systems: All systems reviewed & are unremarkable except as noted in HPI & below Physical Exam Constitutional: WD/WN, vitals as above Eyes: PERRL, conjunctivae normal, anicteric sclerae Neck: trachea midline, no thyromegaly Respiratory: normal respiratory effort; no respiratory distress and no labored breathing Cardiovascular: Rate/Rhythm: regular rate and regular rhythm Gastrointestinal (Abdomen): Inspection/Auscultation: abdomen normal to inspection; abdomen not distended Percussion/Palpation: + abdomen tender (lower abdomen) and abdomen soft; no guarding and abdomen not rigid Skin: no rashes, warm and dry Psychiatric: A+Ox3, euthymic affect Results & Data Vital Signs (Past 12 Hours) Vital Signs Temp Pulse Resp BP Pulse Ox O2 Del Method 12/09/23 07:58 36.8 C 78 16 111/67 97 Room Air Laboratory Results 12/09/23 12/08/23 12/08/23 Range/Units 05:30 Unknown 15:56 WBC 11.27 H 14.45 H (4.8-10.8) K/ul RBC 4.01 L 4.74 (4.20-5.40) M/uL Hgb 10.3 L 12.5 (12.0-16.0) g/dl Hct 32.7 L 37.7 (37.0-47.0) % MCV 81.5 79.5 L (80.0-100.0) fL MCH 25.7 26.4 (25.0-34.0) pg MCHC 31.5 L 33.2 (32.0-36.0) g/dL RDW Std Deviation 41.1 39.8 (36.4-46.3) fL RDW Coeff of Leah 13.8 13.8 (11.5-14.5) % Plt Count 388 446 H (130-400) K/uL MPV 10.0 9.9 (9.4-12.4) fL Immature Gran % (Auto) 0.3 % Neut % (Auto) 77.2 % Lymph % (Auto) 16.6 % Wake % (Auto) 5.3 % Eos % (Auto) 0.4 % Baso % (Auto) 0.2 % Neut # (Auto) 11.15 H (1.40-6.50) K/uL Lymph # (Auto) 2.40 (1.20-3.40) K/uL Wake # (Auto) 0.77 H (0.11-0.59) K/uL Eos # (Auto) 0.06 (0.00-0.50) K/uL Baso # (Auto) 0.03 (0.00-0.20) K/uL Immature Gran # (Auto) 0.04 (0.01-0.20) K/uL Sodium 137 137 (136-145) mmol/L Potassium 3.2 L 3.9 (3.5-5.1) mmol/L Chloride 106 104 (98-107) mmol/L Carbon Dioxide 22 25 (21-32) mmol/L Anion Gap 9 8 (3-11) BUN 10 13 (6-23) mg/dl Creatinine 0.70 0.80 (0.6-1.2) mg/dl Est Cr Clr Drug Dosing 122.9 106.8 ml/min Est GFR ( Amer) 129.2 109.9 ml/min Est GFR (Non-Af Amer) 111.5 94.9 ml/min BUN/Creatinine Ratio 14.3 16.3 (10-20) Glucose 81 90 (70-99(Fasting)) mg/dl Calcium 7.6 L 8.9 (8.6-10.3) mg/dl Total Bilirubin 0.6 (0.2-1.0) mg/dl AST 13 (13-39) U/L ALT 11 (7-52) U/L Alkaline Phosphatase 87 (34-104) U/L Total Protein 7.7 (6.0-8.3) gm/dl Albumin 3.9 (3.4-5.0) gm/dl Globulin 3.8 (2.5-4.0) gm/dl Albumin/Globulin Ratio 1.0 (0.9-2) Lipase 7 L (11-82) U/L HCG, Qual Negative (Negative) Urine Color Hart Urine Appearance Turbid A (Clear) Urine pH 5.0 (4.5-7.5) Ur Specific [place] 1.031 H (1.000-1.030) Urine Protein Trace H (Negative) Urine Glucose (UA) Negative (Negative) Urine Ketones Trace H (Negative) Urine Blood Trace H (Negative) Urine Nitrite Negative (Negative) Urine Bilirubin 1+ H (Negative) Urine Urobilinogen Negative (Negative) Ur Leukocyte Esterase Trace H (Negative) Urine WBC (Auto) 1-5 (0-5) /hpf Urine RBC (Auto) 0-4 (0-4) /hpf U Hyaline Cast (Auto) 0 (0-5) /lpf U Epithel Cells (Auto) >30 H (0-5) /lpf Urine Bacteria (Auto) Negative (Negative) Diagnostic Findings CT SCAN OF THE ABDOMEN AND PELVIS WITH IV CONTRAST CLINICAL HISTORY: Generalized abdominal pain. Vomiting. Diverticulitis. COMPARISON STUDY: Abdominal CT dated 12/04/2023. TECHNIQUE: Following the IV administration of 118 cc of Optiray 320, CT scan of the abdomen and pelvis is performed from the lung bases to the proximal femora. Images are reviewed in the axial, sagittal, and coronal planes. IV contrast was administered without complication. A dose lowering technique was utilized adhering to the principles of ALARA. CT DOSE: 1479.25 mGy.cm FINDINGS: Lung bases: The heart is normal in size and without pericardial effusion. The lung bases are clear. There is a small hiatal hernia. Liver: The contrast-enhanced liver is normal in size, contour, and attenuation. There is no intrahepatic biliary ductal dilatation. The hepatic veins and portal veins are patent. Gallbladder: Unremarkable. Spleen: Normal in size and attenuation. Pancreas: Unremarkable. Adrenal glands: Unremarkable. Kidneys: The contrast enhanced kidneys are normal in size and without hydronephrosis. The kidneys enhance symmetrically. Abdominal vasculature: The abdominal aorta is normal in course and caliber. Bowel: There is mild colonic diverticulosis. There is significant wall thickening of the proximal sigmoid colon with surrounding inflammation and trace fluid consistent with acute diverticulitis. There is a 2.2 x 1.9 x 2.7 cm intramural abscess seen on axial image #278. No bowel obstruction is seen. The appendix is well-visualized and normal. Peritoneum: There is no intraperitoneal free air or abdominal ascites. There is a large fat-containing umbilical hernia. Lymphadenopathy: Prominent retroperitoneal lymph nodes are likely reactive. Pelvic viscera: The bladder, uterus, and adnexa are normal as visualized. Skeletal structures: No lytic or blastic lesions are seen. Sclerotic change is noted in the sacroiliac joints. IMPRESSION: 1. Again seen are findings of acute sigmoid diverticulitis. The degree of inflammation has modestly worsened as compared to 12/04/2023. 2. No intraperitoneal free air is identified. 3. There is a 2.7 cm intramural abscess along the superior aspect of the sigmoid colon. This is not amenable to percutaneous drainage. 4. Large fat-containing umbilical hernia. 5. Additional findings as above. ACT 112: Negative or not required by law. Electronically signed by: Diallo Khan M.D. 12/08/2023 7:01 PM
--- NOTE | 2023-12-09 15:00 | Hospitalist Progress Note ---
Date of Service December 09, 2023 Assessment & Plan (1) Abscess of sigmoid colon due to diverticulitis: Plan: Diverticulitis with intramural abscess Failed outpatient antibiotic therapy --CT ABD: Again seen are findings of acute sigmoid diverticulitis. The degree of inflammation has modestly worsened as compared to 12/04/2023. No intraperitoneal free air is identified. There is a 2.7 cm intramural abscess along the superior aspect of the sigmoid colon. This is not amenable to percutaneous drainage. Large fat-containing umbilical hernia. -- Conservative management per surgery Appreciate surgery input Continue IV fluids, liquid diet Continue IV Zosyn (2) Morbid obesity with BMI of 40.0-44.9, adult: Plan: BMI is 45. Lifestyle changes recommended (3) GERD (gastroesophageal reflux disease): Plan: Continue PPI DVT Px: SCDs, ambulation. Code Status Full Code Admission and Anticipated Discharge Date Admission Date: December 08, 2023 Subjective Patient is seen and examined at bedside Abdominal pain much improved Denies any nausea, vomiting, chest pain, dyspnea, dizziness Offers no other complaints Requests to advance diet today Review of Systems Review of Systems: All systems reviewed & are unremarkable except as noted in Subjective Physical Exam Physical Exam: Physical Exam: Vitals signs as noted above General Appearance:Obese, no apparent distress Head: normocephalic, Atraumatic Eyes: normal inspection, EOMI Neck: supple, Trachea midline Respiratory/Chest: Normal breath sounds, CTA, No accessory muscle use Cardiovascular: S1, S2, No murmur Abdomen/GI:Soft, Mild tender lower quadrants, no guarding or rigidity, + umbilical hernia, bowel sounds present Extremities/Musculoskeletal:normal inspection, no edema Neurologic/Psych:AAOX3, grossly no focal neurological deficits Skin: normal color, warm Results & Data Results & Data Vital Signs (Past 12 Hours) Vital Signs Temp Pulse Resp BP Pulse Ox O2 Del Method 12/09/23 07:58 36.8 C 78 16 111/67 97 Room Air Laboratory Results Short CBC 12/08/23 12/09/23 Range/Units 15:56 05:30 WBC 14.45 H 11.27 H (4.8-10.8) K/ul Hgb 12.5 10.3 L (12.0-16.0) g/dl Hct 37.7 32.7 L (37.0-47.0) % Plt Count 446 H 388 (130-400) K/uL BMP 12/08/23 12/09/23 15:56 05:30 Sodium 137 137 Potassium 3.9 3.2 L Chloride 104 106 Carbon Dioxide 25 22 BUN 13 10 Creatinine 0.80 0.70 Glucose 90 81 Calcium 8.9 7.6 L Liver Function 12/08/23 Range/Units 15:56 Total Bilirubin 0.6 (0.2-1.0) mg/dl AST 13 (13-39) U/L ALT 11 (7-52) U/L Alkaline Phosphatase 87 (34-104) U/L Albumin 3.9 (3.4-5.0) gm/dl Urine 12/08/23 Range/Units Unknown Urine Color [place] Urine Appearance Turbid A (Clear) Urine pH 5.0 (4.5-7.5) Ur Specific [place] 1.031 H (1.000-1.030) Urine Protein Trace H (Negative) Urine Glucose (UA) Negative (Negative)
[2023-12-10 06:22] LABS: Hematocrit (blood only) 32.1 % (37.0-47.0); Hemoglobin 10.4 g/dl (12.0-16.0); Mean Corpuscular Hemoglobin 26.4 pg (25.0-34.0); Mean Corpuscular Hgb Conc 32.4 g/dL (32.0-36.0); Mean Corpuscular Volume 81.5 fL (80.0-100.0); Mean Platelet Volume 9.8 fL (9.4-12.4); Platelet Count 382 K/uL (130-400); RDW Coefficient of Variation 13.6 % (11.5-14.5); RDW Standard Deviation 40.8 fL (36.4-46.3); Red Blood Count 3.94 M/uL (4.20-5.40); White Blood Count 8.38 K/ul (4.8-10.8)
[2023-12-10 06:51] LABS: BUN Creatinine Ratio 6.8 (10-20); Calcium 7.9 mg/dl (8.6-10.3); Est GFR (African American) 122.8 ml/min; Magnesium 1.9 mg/dl (1.7-2.4); Potassium 3.6 mmol/L (3.5-5.1)
--- NOTE | 2023-12-10 10:32 | Surgery Progress Note ---
Date of Service December 10, 2023 Assessment & Plan (1) Abscess of sigmoid colon due to diverticulitis: Plan: 38-year-old woman with diverticulitis with intramural abscess of the sigmoid colon. She is significantly improved. I would recommend 1 more day of IV antibiotics and then discharged home tomorrow on oral antibiotics. Advance diet to low fiber. (2) Diverticulitis: Admission and Anticipated Discharge Date Admission Date: December 08, 2023 Subjective Doing much better. Minimal pain. No nausea or vomiting. Asking for diet advancement. Physical Exam Physical Exam: NAD, A&O x 3 AFVSS Abdomen: Soft, nontender/nondistended Results & Data Vital Signs (Past 12 Hours) Vital Signs Temp Pulse Resp BP Pulse Ox O2 Del Method 12/10/23 07:32 36.5 C 69 16 116/62 97 Room Air Laboratory Results 12/10/23 Range/Units 05:48 WBC 8.38 (4.8-10.8) K/ul RBC 3.94 L (4.20-5.40) M/uL Hgb 10.4 L (12.0-16.0) g/dl Hct 32.1 L (37.0-47.0) % MCV 81.5 (80.0-100.0) fL MCH 26.4 (25.0-34.0) pg MCHC 32.4 (32.0-36.0) g/dL RDW Std Deviation 40.8 (36.4-46.3) fL RDW Coeff of Leah 13.6 (11.5-14.5) % Plt Count 382 (130-400) K/uL MPV 9.8 (9.4-12.4) fL Sodium 138 (136-145) mmol/L Potassium 3.6 (3.5-5.1) mmol/L Chloride 107 (98-107) mmol/L Carbon Dioxide 27 (21-32) mmol/L Anion Gap 4 (3-11) BUN 5 L (6-23) mg/dl Creatinine 0.73 (0.6-1.2) mg/dl Est Cr Clr Drug Dosing 118.0 ml/min Est GFR ( Amer) 122.8 ml/min Est GFR (Non-Af Amer) 106.0 ml/min BUN/Creatinine Ratio 6.8 L (10-20) Glucose 82 (70-99(Fasting)) mg/dl Calcium 7.9 L (8.6-10.3) mg/dl Magnesium 1.9 (1.7-2.4) mg/dl
--- NOTE | 2023-12-10 14:33 | Hospitalist Progress Note ---
Date of Service December 10, 2023 Assessment & Plan (1) Abscess of sigmoid colon due to diverticulitis: Plan: Diverticulitis with intramural abscess Failed outpatient antibiotic therapy --CT ABD: Again seen are findings of acute sigmoid diverticulitis. The degree of inflammation has modestly worsened as compared to 12/04/2023. No intraperitoneal free air is identified. There is a 2.7 cm intramural abscess along the superior aspect of the sigmoid colon. This is not amenable to percutaneous drainage. Large fat-containing umbilical hernia. -- Conservative management per surgery Appreciate surgery input Received IV fluids Continue IV Zosyn Clinically improved Advance to low fiber diet Surgery following (2) Morbid obesity with BMI of 40.0-44.9, adult: Plan: BMI is 45. Lifestyle changes recommended (3) GERD (gastroesophageal reflux disease): Plan: Continue PPI DVT Px: SCDs, ambulation. Code Status Full Code Admission and Anticipated Discharge Date Admission Date: December 08, 2023 Subjective Patient is seen and examined at bedside Abdominal pain resolved Denies any nausea, vomiting, chest pain, dyspnea Family at bedside Tolerating current diet No other complaints Review of Systems Review of Systems: All systems reviewed & are unremarkable except as noted in Subjective Physical Exam Physical Exam: Physical Exam: Vitals signs as noted above General Appearance:Obese, no apparent distress Head: normocephalic, Atraumatic Eyes: normal inspection, EOMI Neck: supple, Trachea midline Respiratory/Chest: Normal breath sounds, CTA, No accessory muscle use Cardiovascular: S1, S2, No murmur Abdomen/GI:Soft, non tender, no guarding or rigidity, + umbilical hernia, bowel sounds present Extremities/Musculoskeletal:normal inspection, no edema Neurologic/Psych:AAOX3, grossly no focal neurological deficits Skin: normal color, warm Results & Data Results & Data Vital Signs (Past 12 Hours) Vital Signs Temp Pulse Resp BP Pulse Ox O2 Del Method 12/10/23 07:32 36.5 C 69 16 116/62 97 Room Air Laboratory Results Short CBC 12/10/23 Range/Units 05:48 WBC 8.38 (4.8-10.8) K/ul Hgb 10.4 L (12.0-16.0) g/dl Hct 32.1 L (37.0-47.0) % Plt Count 382 (130-400) K/uL BMP 12/10/23 05:48 Sodium 138 Potassium 3.6 Chloride 107 Carbon Dioxide 27 BUN 5 L Creatinine 0.73 Glucose 82 Calcium 7.9 L
[2023-12-11 06:40] LABS: Hematocrit (blood only) 33.4 % (37.0-47.0); Hemoglobin 10.6 g/dl (12.0-16.0); Mean Corpuscular Hgb Conc 31.7 g/dL (32.0-36.0); Mean Corpuscular Volume 81.9 fL (80.0-100.0); Mean Platelet Volume 10.2 fL (9.4-12.4); Platelet Count 422 K/uL (130-400); RDW Coefficient of Variation 13.7 % (11.5-14.5); RDW Standard Deviation 40.6 fL (36.4-46.3); Red Blood Count 4.08 M/uL (4.20-5.40); White Blood Count 8.34 K/ul (4.8-10.8)
[2023-12-11 06:57] LABS: BUN Creatinine Ratio 6.2 (10-20); Calcium 8.3 mg/dl (8.6-10.3); Creatinine Clr Calc Pharmacy 106.4 ml/min; Est GFR (African American) 108.3 ml/min; Est GFR (Non-African American) 93.4 ml/min; Potassium 3.6 mmol/L (3.5-5.1)
--- NOTE | 2023-12-11 11:44 | Surgery Progress Note ---
Date of Service December 11, 2023 Assessment & Plan (1) Abscess of sigmoid colon due to diverticulitis: Plan: 38-year-old woman with diverticulitis with intramural abscess of the sigmoid colon. She is significantly improved. She may be discharged home today on oral antibiotics. (2) Diverticulitis: Admission and Anticipated Discharge Date Admission Date: December 08, 2023 Subjective doing well. No complaints. No further abdominal pain. Physical Exam Physical Exam: NAD, A&O x 3 AFVSS Abdomen: Soft, nontender/nondistended Results & Data Vital Signs (Past 12 Hours) Vital Signs Temp Pulse Resp BP Pulse Ox O2 Del Method 12/11/23 07:01 36.4 C L 56 L 16 111/78 98 Room Air
--- NOTE | 2023-12-11 12:03 | Hospitalist Progress Note ---
Date of Service December 11, 2023 Assessment & Plan (1) Abscess of sigmoid colon due to diverticulitis: Plan: Diverticulitis with intramural abscess Failed outpatient antibiotic therapy --CT ABD: Again seen are findings of acute sigmoid diverticulitis. The degree of inflammation has modestly worsened as compared to 12/04/2023. No intraperitoneal free air is identified. There is a 2.7 cm intramural abscess along the superior aspect of the sigmoid colon. This is not amenable to percutaneous drainage. Large fat-containing umbilical hernia. -- Conservative management per surgery Appreciate surgery input Received IV fluids Continue IV Zosyn Clinically improved Advance to low fiber diet Surgery following Plan to discharge on oral antibiotics to complete the course Advised to consider repeat imaging in 2 to 3 weeks to ensure resolution of abscess (2) Morbid obesity with BMI of 40.0-44.9, adult: Plan: BMI is 45. Lifestyle changes recommended (3) GERD (gastroesophageal reflux disease): Plan: Continue PPI DVT Px: SCDs, ambulation. Code Status Full Code Disposition Home Admission and Anticipated Discharge Date Admission Date: December 08, 2023 Subjective Patient is seen and examined at bedside Doing well No new complaints Denies any nausea, vomiting, chest pain, dyspnea, abd pain Tolerating low fiber diet Review of Systems Review of Systems: All systems reviewed & are unremarkable except as noted in Subjective Physical Exam Physical Exam: Physical Exam: Vitals signs as noted above General Appearance:Obese, no apparent distress Head: normocephalic, Atraumatic Eyes: normal inspection, EOMI Neck: supple, Trachea midline Respiratory/Chest: Normal breath sounds, CTA, No accessory muscle use Cardiovascular: S1, S2, No murmur Abdomen/GI:Soft, non tender, no guarding or rigidity, + umbilical hernia, bowel sounds present Extremities/Musculoskeletal:normal inspection, no edema Neurologic/Psych:AAOX3, grossly no focal neurological deficits Skin: normal color, warm Results & Data Results & Data Vital Signs (Past 12 Hours) Vital Signs Temp Pulse Resp BP Pulse Ox O2 Del Method 12/11/23 07:01 36.4 C L 56 L 16 111/78 98 Room Air
--- NOTE | 2023-12-11 12:34 | Discharge Summary ---
Date of Service December 11, 2023 Admission HPI Per Admitting Provider 38-year-old female presents with acute complicated diverticulitis with small abscess formation. She was notably on a round of Augmentin for sinus infection during mid October she was then seen less than a week later in the ER for abdominal pain that was acute. She was still on the Augmentin at that time. CT showed acute diverticulitis without evidence of perforation or abscess and she was sent home with a course of Cipro Flagyl. This was on 11/13 and she returned on 12/03 with reports of intermittent abdominal pain. Imaging was repeated and revealed persistence of acute diverticulitis without evidence of perforation or abscess. She was placed on Augmentin at that time and now is returning 4 days later reporting abdominal pain with radiation into her back. Repeat CT scan reveals new abscess complication. She is feeling better since receiving dilaudid in the ER. She denies nausea. She reports overall a history of about 5 episodes of diverticulitis in her life and has not yet had a colonoscopy. No family history of diverticulitis that she is aware of. She is morbidly obese and reports drinking Dr. Pepper consistently although she recently switched to water. She also reports no smoking, alcohol use and she has avoided any red meats, also. Admission Exam Per Admitting Provider CONSTITUTIONAL: obese, vitals as above, generally well-appearing, NAD EYES: normal conjunctivae, no scleral icterus ENT: external ear and nose normal, MMM NECK: trachea midline RESPIRATORY: clear to auscultation bilaterally, no crackles, rales or wheezes, normal respiratory effort CARDIOVASCULAR: regular rate and rhythm, S1 and 2 heard without murmurs, gallops or rubs, no JVD, no peripheral edema, no carotid bruits CHEST: inspection of chest was normal GASTROINTESTINAL: soft, nTTP in RLQ>LLQ, ND, no guarding MUSCULOSKELETAL: strength 5/5 throughout, head is normocephalic and atraumatic SKIN: warm and dry NEUROLOGIC: CN 2-12 grossly intact, no sensory deficit, normal cognition, normal speech, no tremor PSYCHIATRIC: alert cooperative and oriented to person, place and time. Euthymic mood, makes good eye contact, language grossly intact, recent and remote memory grossly intact. Principal Diagnosis Diverticulitis with abscess Discharge Data Allergies Allergy/AdvReac Type Severity Reaction Status Date / Time No Known Allergies Allergy Verified 12/08/23 18:50 Consultations 12/08/23 19:14 ED Decision to Admit Stat 12/08/23 21:01 Consult General Surgery Routine Procedures Performed Laboratory Results WBC 8.34 K/ul (4.8-10.8) 12/11/23 05:44 RBC 4.08 M/uL (4.20-5.40) L 12/11/23 05:44 Hgb 10.6 g/dl (12.0-16.0) L 12/11/23 05:44 Hct 33.4 % (37.0-47.0) L 12/11/23 05:44 MCV 81.9 fL (80.0-100.0) 12/11/23 05:44 MCH 26.0 pg (25.0-34.0) 12/11/23 05:44 MCHC 31.7 g/dL (32.0-36.0) L 12/11/23 05:44 RDW Std Deviation 40.6 fL (36.4-46.3) 12/11/23 05:44 RDW Coeff of Leah 13.7 % (11.5-14.5) 12/11/23 05:44 Plt Count 422 K/uL (130-400) H 12/11/23 05:44 MPV 10.2 fL (9.4-12.4) 12/11/23 05:44 Immature Gran % (Auto) 0.3 % 12/08/23 15:56 Neut % (Auto) 77.2 % 12/08/23 15:56 Lymph % (Auto) 16.6 % 12/08/23 15:56 [place] % (Auto) 5.3 % 12/08/23 15:56 Eos % (Auto) 0.4 % 12/08/23 15:56 Baso % (Auto) 0.2 % 12/08/23 15:56 Neut # (Auto) 11.15 K/uL (1.40-6.50) H 12/08/23 15:56 Lymph # (Auto) 2.40 K/uL (1.20-3.40) 12/08/23 15:56 [place] # (Auto) 0.77 K/uL (0.11-0.59) H 12/08/23 15:56 Eos # (Auto) 0.06 K/uL (0.00-0.50) 12/08/23 15:56 Baso # (Auto) 0.03 K/uL (0.00-0.20) 12/08/23 15:56 Immature Gran # (Auto) 0.04 K/uL (0.01-0.20) 12/08/23 15:56 Sodium 139 mmol/L (136-145) 12/11/23 05:44 Potassium 3.6 mmol/L (3.5-5.1) 12/11/23 05:44 Chloride 106 mmol/L (98-107) 12/11/23 05:44 Carbon Dioxide 28 mmol/L (21-32) 12/11/23 05:44 Anion Gap 5 (3-11) 12/11/23 05:44 BUN 5 mg/dl (6-23) L 12/11/23 05:44 Creatinine 0.81 mg/dl (0.6-1.2) 12/11/23 05:44 Est Cr Clr Drug Dosing 106.4 ml/min 12/11/23 05:44 Est GFR ( Amer) 108.3 ml/min 12/11/23 05:44 Est GFR (Non-Af Amer) 93.4 ml/min 12/11/23 05:44 BUN/Creatinine Ratio 6.2 (10-20) L 12/11/23 05:44 Glucose 90 mg/dl (70-99(Fasting)) 12/11/23 05:44 Calcium 8.3 mg/dl (8.6-10.3) L 12/11/23 05:44 Magnesium 1.9 mg/dl (1.7-2.4) 12/10/23 05:48 Total Bilirubin 0.6 mg/dl (0.2-1.0) 12/08/23 15:56 AST 13 U/L (13-39) 12/08/23 15:56 ALT 11 U/L (7-52) 12/08/23 15:56 Alkaline Phosphatase 87 U/L (34-104) 12/08/23 15:56 Total Protein 7.7 gm/dl (6.0-8.3) 12/08/23 15:56 Albumin 3.9 gm/dl (3.4-5.0) 12/08/23 15:56 Globulin 3.8 gm/dl (2.5-4.0) 12/08/23 15:56 Albumin/Globulin Ratio 1.0 (0.9-2) 12/08/23 15:56 Lipase 7 U/L (11-82) L 12/08/23 15:56 HCG, Qual Negative (Negative) 12/08/23 15:56 Urine Color [place] 12/08/23 Unknown Urine Appearance Turbid (Clear) A 12/08/23 Unknown Urine pH 5.0 (4.5-7.5) 12/08/23 Unknown Ur Specific [place] 1.031 (1.000-1.030) H 12/08/23 Unknown Urine Protein Trace (Negative) H 12/08/23 Unknown Urine Glucose (UA) Negative (Negative) 12/08/23 Unknown Urine Ketones Trace (Negative) H 12/08/23 Unknown Urine Blood Trace (Negative) H 12/08/23 Unknown Urine Nitrite Negative (Negative) 12/08/23 Unknown Urine Bilirubin 1+ (Negative) H 12/08/23 Unknown Urine Urobilinogen Negative (Negative) 12/08/23 Unknown Ur Leukocyte Esterase Trace (Negative) H 12/08/23 Unknown Urine WBC (Auto) 1-5 /hpf (0-5) 12/08/23 Unknown Urine RBC (Auto) 0-4 /hpf (0-4) 12/08/23 Unknown U Hyaline Cast (Auto) 0 /lpf (0-5) 12/08/23 Unknown U Epithel Cells (Auto) >30 /lpf (0-5) H 12/08/23 Unknown Urine Bacteria (Auto) Negative (Negative) 12/08/23 Unknown Impressions Abdomen/Pelvis CT 12/08/23 18:10 CT SCAN OF THE ABDOMEN AND PELVIS WITH IV CONTRAST CLINICAL HISTORY: Generalized abdominal pain. Vomiting. Diverticulitis. COMPARISON STUDY: Abdominal CT dated 12/04/2023. TECHNIQUE: Following the IV administration of 118 cc of Optiray 320, CT scan of the abdomen and pelvis is performed from the lung bases to the proximal femora. Images are reviewed in the axial, sagittal, and coronal planes. IV contrast was administered without complication. A dose lowering technique was utilized adhering to the principles of ALARA. CT DOSE: 1479.25 mGy.cm FINDINGS: Lung bases: The heart is normal in size and without pericardial effusion. The lung bases are clear. There is a small hiatal hernia. Liver: The contrast-enhanced liver is normal in size, contour, and attenuation. There is no intrahepatic biliary ductal dilatation. The hepatic veins and portal veins are patent. Gallbladder: Unremarkable. Spleen: Normal in size and attenuation. Pancreas: Unremarkable. Adrenal glands: Unremarkable. Kidneys: The contrast enhanced kidneys are normal in size and without hydronephrosis. The kidneys enhance symmetrically. Abdominal vasculature: The abdominal aorta is normal in course and caliber. Bowel: There is mild colonic diverticulosis. There is significant wall thickening of the proximal sigmoid colon with surrounding inflammation and trace fluid consistent with acute diverticulitis. There is a 2.2 x 1.9 x 2.7 cm intramural abscess seen on axial image #278. No bowel obstruction is seen. The appendix is well-visualized and normal. Peritoneum: There is no intraperitoneal free air or abdominal ascites. There is a large fat-containing umbilical hernia. Lymphadenopathy: Prominent retroperitoneal lymph nodes are likely reactive. Pelvic viscera: The bladder, uterus, and adnexa are normal as visualized. Skeletal structures: No lytic or blastic lesions are seen. Sclerotic change is noted in the sacroiliac joints. IMPRESSION: 1. Again seen are findings of acute sigmoid diverticulitis. The degree of inflammation has modestly worsened as compared to 12/04/2023. 2. No intraperitoneal free air is identified. 3. There is a 2.7 cm intramural abscess along the superior aspect of the sigmoid colon. This is not amenable to percutaneous drainage. 4. Large fat-containing umbilical hernia. 5. Additional findings as above. ACT 112: Negative or not required by law. Electronically signed by: Diallo Khan M.D. 12/08/2023 7:01 PM Ordered Studies 12/08/23 18:10 CT abd pelvis IV con only Stat Hospital Course (1) Abscess of sigmoid colon due to diverticulitis: Diverticulitis with intramural abscess Failed outpatient antibiotic therapy --CT ABD: Again seen are findings of acute sigmoid diverticulitis. The degree of inflammation has modestly worsened as compared to 12/04/2023. No intraperitoneal free air is identified. There is a 2.7 cm intramural abscess along the superior aspect of the sigmoid colon. This is not amenable to percutaneous drainage. Large fat-containing umbilical hernia. -- Conservative management per surgery Appreciate surgery input Received IV fluids Continue IV Zosyn Clinically improved Advance to low fiber diet Surgery following Plan to discharge on oral antibiotics to complete the course (of note: Patient states she has Augmentin prescription for 6 more days left from prior to hospital admission) Advised to consider repeat imaging in 2 to 3 weeks to ensure resolution of abscess (2) Morbid obesity with BMI of 40.0-44.9, adult: BMI is 45. Lifestyle changes recommended (3) GERD (gastroesophageal reflux disease): Continue PPI DVT Px: SCDs, ambulation. Code Status Full Code Disposition Home Total Time Total Time Spent Total Time Spent (In Minutes): 58 minutes Discharge Plan Discharge Items Patient Disposition: Home - Self-Care Reason For Visit: ACUTE COMPLICATED DIVERTICULITIS Discharge Diagnosis: Diverticulitis with abscess Condition on Discharge: Good Activity: Per Instructions section Exercise/Sports: Gradually increase as tolerated Non-emergency contact: Primary Care Provider and Surgeon Call non-emergency contact if: you have any medication questions, your symptoms worsen, your pain is concerning for you and you have a fever Follow-up/Referrals: Quincy Mejia MD [Primary Care Provider] - Diet: Heart Healthy and Low Fiber Addtl Attending Provider Instructions: Follow-up with your primary care physician Dr. Mejia on 12/14/23 at 11:00 AM as scheduled Consider following with your surgeon Dr.Stephen Turner with repeat CT abdomen in 3 to 4 weeks to ensure resolution of abscess as recommended --Complete antibiotic course Augmentin for 7 more days (Last date 12/18/23) Seek immediate medical attention if your symptoms reoccur or worsen Please take all medications as instructed on discharge list below. Please call if you have any questions or problems. You can reach a [facility] hospitalist on duty at [facility] 24 hours a day by calling [phone] Pending Studies at Discharge: No Stand-Alone Forms: My [facility], Smoking Cessation Medications and DC Order Prescriptions: Continued omeprazole 20 mg capsule,delayed release(DR/EC) 20 mg PO QAM amoxicillin-pot clavulanate 875-125 mg tablet 1 tab PO BID Qty: 6 0RF Rx Instructions: Start Date 12/04/23 - End Date 12/14/23 Discharge Orders: Discharge Order (Routine); Ordered 12/11/23 Ordered By: [place] Admission Data Admit Date/Time: 12/08/23 20:14 Attending Provider: [place] Admit Provider: Zully Saleh Primary Care Provider: Quincy Mejia Other Providers: Pablo Turner; Zully Saleh
== END 2023-12-11 13:14 | disposition home or self-care (01) | DRG 392 ==
LOC: ED 15:47 → 3W 20:14
DX: Z87.891 Personal history of nicotine dependence; Z68.42 Body mass index [BMI] 45.0-49.9, adult; E66.01 Morbid (severe) obesity due to excess calories; K57.20 Diverticulitis of large intestine with perforation and abscess without bleeding; K21.9 Gastro-esophageal reflux disease without esophagitis